=== PATIENT | female | born 1945 | race Caucasian/White ===

== ENCOUNTER 2018-08-25 20:51 | Inpatient (IN) | payer OTHER ==
[~2018-08-25] VITALS: Ht 157.5 cm; Wt 84.0 kg
[~2018-08-25 20:51] MED LIST: KEFLEX500 MG PO; LAC PO; MYL80 CH; NOR10T PO; OSCD PO
[2018-08-25 20:57] VITALS: Ht 157.5 cm; Wt 84.0 kg
[2018-08-25 22:10] LABS: CALCIUM 8.9 mg/dL (8.5-10.1); CHLORIDE SERUM 103 mmol/L (98-107); CREATININE SERUM 0.8 mg/dL (0.6-1.0); GLUCOSE SERUM 112 mg/dL (74-106); POTASSIUM SERUM 3.7 mmol/L (3.5-5.1); SODIUM SERUM 138 mmol/L (136-145)
[2018-08-25 22:13] LABS: BASOPHIL % 0.2 % (0-2); PLATELET COUNT 172 x10^3mcL (130-400); RED CELL DISTRIBUTION WIDTH 12.8 % (11.5-14.5)
[2018-08-25 22:15] LABS: ALBUMIN 3.4 g/dL (3.4-5.0); ALKALINE PHOSPHATASE 95 U/L (46-116); ALT/SGPT 15 U/L (14-59); AST/SGOT 27 U/L (15-37); BILIRUBIN TOTAL 0.99 mg/dL (0.20-1.00); LIPASE 121 IU/L (73-393)
[2018-08-25 22:33] LABS: UA SPECIFIC GRAVITY 1.015 (1.005-1.035); microscopic required? YES; urine erythrocyte 3+ (NEGATIVE)
[2018-08-25] MEDS ORDERED: AMOXICILLIN/CLA1 TA6 PO (23:11)
[2018-08-25] MEDS ORDERED: FAMOTIDINE40 MG PO (23:11)
[2018-08-25] MEDS ORDERED: BACLOFEN5 MG PO (23:13)
[2018-08-25] MEDS ORDERED: DICLOFENAC SODI75 MG PO (23:14)
[2018-08-25] MEDS ORDERED: TRAZODONE50 M1 PO (23:14)
[2018-08-26 00:43] LABS: CHOLESTEROL/HDL RATIO 3.5; MAGNESIUM 1.7 mg/dL (1.8-2.4); PHOSPHOROUS 2.8 mg/dL (2.5-4.9)
[2018-08-26 02:10] VITALS: BP 113/43
[2018-08-26 05:41] VITALS: BP 100/41
[2018-08-26 06:33] LABS: BASOPHIL % 0.1 % (0-2); PLATELET COUNT 139 x10^3mcL (130-400); RED CELL DISTRIBUTION WIDTH 12.3 % (11.5-14.5)
[2018-08-26 07:11] LABS: CALCIUM 8.2 mg/dL (8.5-10.1); CARBON DIOXIDE 23.3 mmol/L (21-32); CHLORIDE SERUM 108 mmol/L (98-107); CREATININE SERUM 0.7 mg/dL (0.6-1.0); GLUCOSE SERUM 99 mg/dL (74-106); MAGNESIUM 1.7 mg/dL (1.8-2.4); POTASSIUM SERUM 3.7 mmol/L (3.5-5.1); SODIUM SERUM 141 mmol/L (136-145)
[2018-08-26 08:50] VITALS: BP 124/44
[2018-08-26 11:56] LABS: AMPHETAMINE QUAL UR NONE DETECTED (See below)
[2018-08-26 16:45] VITALS: BP 122/48
[2018-08-26 21:03] VITALS: BP 105/66
[2018-08-27 05:54] VITALS: BP 133/54
[2018-08-27 06:28] LABS: CALCIUM 8.3 mg/dL (8.5-10.1); CARBON DIOXIDE 26.9 mmol/L (21-32); CHLORIDE SERUM 107 mmol/L (98-107); CREATININE SERUM 0.6 mg/dL (0.6-1.0); GLUCOSE SERUM 89 mg/dL (74-106); MAGNESIUM 1.9 mg/dL (1.8-2.4); PHOSPHOROUS 2.4 mg/dL (2.5-4.9); POTASSIUM SERUM 4.1 mmol/L (3.5-5.1); SODIUM SERUM 140 mmol/L (136-145)
[2018-08-27 06:42] LABS: BASOPHIL % 0.3 % (0-2); PLATELET COUNT 138 x10^3mcL (130-400); RED CELL DISTRIBUTION WIDTH 12.6 % (11.5-14.5)
[2018-08-27 09:33] VITALS: BP 135/45
[2018-08-27 18:14] VITALS: BP 145/50
[2018-08-27 21:40] VITALS: BP 135/47
[2018-08-28 05:49] VITALS: BP 138/53
[2018-08-28 06:33] LABS: BASOPHIL % 0.3 % (0-2); PLATELET COUNT 160 x10^3mcL (130-400); RED CELL DISTRIBUTION WIDTH 12.8 % (11.5-14.5)
[2018-08-28 06:47] LABS: CALCIUM 8.4 mg/dL (8.5-10.1); CARBON DIOXIDE 27.2 mmol/L (21-32); CHLORIDE SERUM 106 mmol/L (98-107); CREATININE SERUM 0.7 mg/dL (0.6-1.0); GLUCOSE SERUM 90 mg/dL (74-106); PHOSPHOROUS 2.9 mg/dL (2.5-4.9); SODIUM SERUM 141 mmol/L (136-145)
[2018-08-28 09:39] VITALS: BP 137/50
[2018-08-28] MEDS ORDERED: LEV500 PO (10:24)
[2018-08-28] MEDS ORDERED: LAC PO (10:25)
[2018-08-28] MEDS ORDERED: FLA500 PO (10:25)
[2018-08-28] MEDS ORDERED: DIFLUCAN200 MG PO (10:29)
[2018-08-28] MEDS ORDERED: PEPCID20 MG PO (10:29)
[2018-08-28 12:29] VITALS: BP 137/50
== END 2018-08-28 14:00 | disposition home or self-care (01) | DRG 391 ==
LOC: ED 20:51 → MU 23:58
PROVIDERS: Emergency Medicine; ADMIT General Practice
DX: K57.32 Diverticulitis of large intestine without perforation or abscess without bleeding (principal); N17.0 Acute kidney failure with tubular necrosis; R31.29 Other microscopic hematuria; E78.5 Hyperlipidemia, unspecified; E83.42 Hypomagnesemia; E83.39 Other disorders of phosphorus metabolism; G89.29 Other chronic pain; M54.9 Dorsalgia, unspecified; Z68.34 Body mass index [BMI] 34.0-34.9, adult
CPT/HCPCS: J1885; J1956; J2270; J2405; J3490; J7030; Q0092

== ENCOUNTER 2019-01-03 16:59 | Inpatient (IN) | payer OTHER, MEDICARE ==
[~2019-01-03] VITALS: Ht 157.5 cm; Wt 77.6 kg
[~2019-01-03 16:59] MED LIST changes: +AMOXICILLIN/CLA1 TA6 PO; +BACLOFEN5 MG PO; +DICLOFENAC SODI75 MG PO; +DIFLUCAN200 MG PO; +FAMOTIDINE40 MG PO; +FLA500 PO; +LEV500 PO; +PEPCID20 MG PO; +TRAZODONE50 M1 PO
[2019-01-03 17:14] VITALS: Ht 157.5 cm; Wt 77.6 kg
--- NOTE | 2019-01-03 19:35 | NUR ---
PT PRESENTS TO ER TODAY WITH C/O OF LLQ PAIN THAT STARTED APPROX 3 DAYS AGO. PT REPORTS THAT HER PAIN IS SHARP AND RADIATES TO HER LOWER BACK. PT RATES HER PAIN A 8/10. PT REPORTS NUASEA BUT DENIES ANY VOMITING OR DIARRHEA. PT ALSO REPORTS URINARY FREQUENCY. PT REPORT THAT SHE HAS HAD THIS PROBLEM BEFORE LAST AUGUST AND WAS DX WITH DIVERTICULITIS. PT IS A/O X4. RESP ARE EQUAL AND UNLABORED. NO ACUTE DISTRESS NOTED. SPOUSE AT BEDSIDE.
[2019-01-03 20:18] LABS: BASOPHIL % 0.2 % (0-2); PLATELET COUNT 194 x10^3mcL (130-400); RED CELL DISTRIBUTION WIDTH 12.8 % (11.5-14.5)
[2019-01-03 20:37] LABS: CALCIUM 9.3 mg/dL (8.5-10.1); CARBON DIOXIDE 26.9 mmol/L (21-32); CHLORIDE SERUM 102 mmol/L (98-107); CREATININE SERUM 0.8 mg/dL (0.6-1.0); GLUCOSE SERUM 101 mg/dL (74-106); POTASSIUM SERUM 3.5 mmol/L (3.5-5.1); SODIUM SERUM 138 mmol/L (136-145)
[2019-01-03 20:41] LABS: ALBUMIN 3.4 g/dL (3.4-5.0); ALKALINE PHOSPHATASE 118 U/L (46-116); ALT/SGPT 36 U/L (14-59); AST/SGOT 23 U/L (15-37); BILIRUBIN TOTAL 1.01 mg/dL (0.20-1.00); CHOLESTEROL 200 mg/dL (<200); LIPASE 75 IU/L (73-393); TOTAL PROTEIN, SERUM 6.8 g/dL (6.4-8.2); TRIGLYCERIDES 46 mg/dL (<150)
[2019-01-03 20:42] LABS: FREE T4 1.12 ng/dL (0.76-1.46); HDL CHOLESTEROL 66 mg/dL (40-60); T4(THYROXINE) 8.9 ug/dL (4.7-13.3)
--- NOTE | 2019-01-03 20:42 | NUR ---
PT OFF THE FLOOR FOR CT SCAN.
[2019-01-03 20:45] LABS: T3 TOTAL 0.83 ng/mL
[2019-01-03 21:55] LABS: microscopic required? YES; urine erythrocyte 3+ (NEGATIVE)
--- NOTE | 2019-01-03 22:22 | NUR ---
REPORT GIVEN LANCE MCCLURE TO ASSUME CARE OF PT.
[2019-01-03 22:54] LABS: MAGNESIUM 1.9 mg/dL (1.8-2.4); PHOSPHOROUS 3.2 mg/dL (2.5-4.9)
[2019-01-03 23:14] VITALS: BP 114/45
--- NOTE | 2019-01-03 23:23 | NUR ---
RECEIVED PT FROM ER. PT ADMIT FOR DIVERTICULITIS, PT IS A/O X4, VERBAL RESPONSIVE, ABLE TO TELL WHAT SHE NEEDS. LUNG SOUND CLEAR BILATERAL, NO COUGH, NO SOB, PT DENY ANY CHEST PAIN OR DISCOMFORT, BOWEL SOUND PRESENT ALL 4 QUADRANTS, NO DISTENTION, NO TENDER. PT C/O LEFT LOWER PAIN 3/10, DENY ANY N/V PEDAL PULSE PRESENT BOTH FEET, NON PITTING EDEMA NOTED BLE. IV AT RIGHT AC, NO LEAKING, NO INFILTRATION. ALL ADLS ASSIST, ALL NEED MET, CALL LIGHT IN REACH, WILL CONTINUE TO MONITOR.
--- NOTE | 2019-01-03 23:38 | NUR ---
IVF NS STARTED @ 100CC/HR IV ACCESS @ [facility] PATENT NON INFIL, PT DENIES PAIN AT THIS TIME AND ASKING FOR FOOD SINCE SHE DIDNT EAT SINCE THIS AFTERNOON, DENIES NAUSEA OR VOMITING, DR VIDAL MADE AWARE, STILL HAVE TO REVIEW LABS, OK'D TO GIVE SOME ICE CHIPS FOR NOW, WILL CONT TO MONITOR.
[2019-01-04 05:56] VITALS: BP 110/55
--- NOTE | 2019-01-04 06:05 | NUR ---
PT REMAINED NPO, NO C/O ABDL PAIN NO NAUSEA OR VOMITING, PT C/O HEADACHE 5/10 PER ASSESSMENT, V/S STABLE TYLENOL 650 MG PO GIVEN PER PRN ORDER FOR DIALLO, REPOSITIONED SELF TO COMFORT, IVF INFUSING WELL ORDERED, CONT TO MONITOR.
[2019-01-04 06:29] LABS: CARBON DIOXIDE 25.5 mmol/L (21-32); CHLORIDE SERUM 105 mmol/L (98-107); CREATININE SERUM 0.7 mg/dL (0.6-1.0); GLUCOSE SERUM 95 mg/dL (74-106); POTASSIUM SERUM 3.8 mmol/L (3.5-5.1); SODIUM SERUM 139 mmol/L (136-145)
[2019-01-04 06:40] LABS: BASOPHIL % 0.1 % (0-2); PLATELET COUNT 159 x10^3mcL (130-400); RED CELL DISTRIBUTION WIDTH 12.4 % (11.5-14.5)
--- NOTE | 2019-01-04 07:32 | NUR ---
AT 0710 - RECEIVED PATIENT FROM NIGHT NURSE. PATIENT RESTING WITH EYES CLOSED. RESPIRATIONS REGULAR. IV INFUSING NS AT 100ML/HR. CONTINUING TO MONITOR.
[2019-01-04 08:36] VITALS: BP 101/41
--- NOTE | 2019-01-04 09:25 | NUR ---
AT 0830 - PATIENT AWAKE, ALERT AND ORIENTED. REPORTS SLIGHT ABDOMINAL PAIN LLQ. DECLINED PAIN MEDICATION AT THIS TIME. REPORTS THAT HEADACHE SHE HAD EARLIER HAD RESOLVED. ABDOMEN SOFT WITH HYPOACTIVE BOWEL SOUNDS. PATIENT IS NPO AT THIS TIME - WILL REVIEW WITH DOCTOR. PATIENT REFUSED COLACE.
--- NOTE | 2019-01-04 10:39 | NUR ---
AT 1010 - SEEN BY DR HALL DURING MORNING ROUNDS. MEDICAL TEAM DOCTORS, YARELY SAUCEDO, AND MYSELF PRIMARY CARE NURSE ALSO PRESENT. DR HALL SPOKE WITH PATIENT ABOUT PLAN OF TREATMENT. OK FOR PATIENT TO HAVE SOFT DIET. COMMENCED ON ZOSYN. FIRST DOSE IN PROGRESS. AT 1020 - SPOKE WITH DR GONZALEZ REGARDING PATIENT'S DIET. SHE WILL PLACE AN ORDER.
--- NOTE | 2019-01-04 13:05 | NUR ---
PATIENT EATING LUNCH.
--- NOTE | 2019-01-04 13:41 | NUR ---
DR JORDAN NOTIFIED OF D-DIMER LEVEL OF 560. PATIENT FOR BLE ULTRASOUND.
--- NOTE | 2019-01-04 15:14 | NUR ---
C/O LLQ ABDOMINAL PAIN. MEDICATED WITH TYLANOL PER EMAR. PLACED CALL FOR DR FUNG - PATIENT HAS REPORTED THAT TREMADOL WORKS WELL FOR HER AND WILL CHECK WITH DR IF IT CAN BE ADDED TO PATIENT'S PROFILE.
[2019-01-04 17:42] VITALS: BP 109/49
--- NOTE | 2019-01-04 18:33 | NUR ---
VSS. AFEBRILE. IV INFUSING NS AT 100 ML/HR. PATIENT TOLERATING PO FOOD INTAKE OF REGULAR DIET. REPORTS GOOD RELIEF OF PAIN WITH TYLANOL. AMBULATES TO BATHROOM FOR TOILET NEEDS. SCDS TO BLE. WILL ENDORSE CARE TO NIGHT NURSE.
[2019-01-04 20:28] VITALS: BP 117/55
--- NOTE | 2019-01-04 21:20 | NUR ---
AAO X4 VERBAL DENIES HEADACHE OR DIZZINESS, AMBULATES TO THE THE BATHROOM, PT CLAIMED HAVING EPISODES OF HEADACHE AND BACKACHE BUT SHE AGREED TO JUST HAVE TYLENOL PRN FOR PAIN, STATED TO DISREGARD REQUEST FOR TRAMADOL IN WHICH SHE'S TAKING AT HOME FOR PAIN, IVF NS INFUSING @ 100CC/HR, IV ACCESS RAC PATENT NON INFIL, DENIES ABDL PAIN, VOIDING FREELY NO DISCOMFORTS, BM X1 JUST SMALL AMT ON LAXATIVES FOR BOWEL MANAGEMENT, SCD'S OFF PER REQUEST, BLE TRACED EDEMA ELEVATED WITH PILLOW, SHIFT ASSESSMENT DONE, PT COMFORTABLE WATCHING TV AT THIS TIME, NO CONCERNS, CONT TO MONITOR.
--- NOTE | 2019-01-05 04:30 | NUR ---
HANGED IV ATB ZOSYN ORDERED NO ADV REACTION, PT AMBULATES TO THE BATHROOM STEADY GAIT, WILL CONT TO MONITOR.
[2019-01-05 05:52] VITALS: BP 106/53
--- NOTE | 2019-01-05 06:17 | NUR ---
NO SIGNIFICANT CHANGE OF CONDITION, DENIES PAIN, SLEPT WELL NO DISTRESS CONT TO MONITOR.
[2019-01-05 07:08] LABS: BASOPHIL % 0.4 % (0-2); PLATELET COUNT 156 x10^3mcL (130-400); RED CELL DISTRIBUTION WIDTH 12.9 % (11.5-14.5)
--- NOTE | 2019-01-05 07:20 | NUR ---
RECEIVED PATIENT FROM SUPERVISOR SALVAGE NURSE. PATIENT IS AWAKE, ALERT AND ORIENTED. BLE ELEVATED ON PILLOWS. ON ROOM AIR, RESP E/U. DENIES PAIN AND DISCOMFORT. IV NOTED TO RAC, IVF INFUSING WELL ORDERED, NO S/S ERYTHEMA AT SITE. CALL LIGHT WITHIN EASY REACH. BED IN LOWEST POSITION. SIDE RAILS UP X2. WILL CONTINUE PLAN OF CARE.
[2019-01-05 07:32] LABS: CARBON DIOXIDE 25.1 mmol/L (21-32); CHLORIDE SERUM 110 mmol/L (98-107); CREATININE SERUM 0.9 mg/dL (0.6-1.0); GLUCOSE SERUM 94 mg/dL (74-106); MAGNESIUM 2.1 mg/dL (1.8-2.4); SODIUM SERUM 143 mmol/L (136-145)
[2019-01-05 08:00] VITALS: BP 125/61
--- NOTE | 2019-01-05 13:19 | NUR ---
PATIENT RESTING EASY. DENIES PAIN AND DISCOMFORT. WILL CONTINUE TO MONITOR.
--- NOTE | 2019-01-05 15:06 | NUR ---
Initial Nutrition Assessment: (256-B) RANDA SOLORZANO 73F Dx: Diverticulitis PMHx:Diverticulitis, Plantar fascitis, Carpal tunnel syndrome, OA, Cholecystitis PSHx: Hysterectomy 10yrs ago, Cholecystectomy 4yrs ago, knee meniscus repair 10yrs ago, carpal tunnel release x2 12yrs ago Labs: CL 110 H, Alk Phos 118 H, LDL 126 H, HDL 66 H Meds: Colace, Ultram, Zofran Diet: Regular PO intake since admission: 80% Ht: 62in Wt: 171# BMI: 31.3 Bed scale: 189.6# IBW: 110# %IBW: 155% UBW: 169# Age: 73 Food Allergies: NKFA Skin: Tyree: 21 Edema: trace BLE, U/S BLE done (neg for DVT) GI: Denies abd pain, BM x1 sml amount Last BM: 01/03 RD Note (01/05): Consult received for BMI 31. Visited pt and son bedside, pt states abd pain has gotten a little better since admission about 4-11/03. States has some consitpation, but otherwise tolerating current diet. Pt reports eats as much as she can but does not eat everything. Pt wanted to know more about diet for divirticulitis, provided and explained low fiber and high fiber diet to manage diverticulitis and complications. Pt reports she has lost weight since last admission back in August, but r/t diet change, cuttin gout sodas, following low fat, low sodium diet. Pt reports easts small frequent meals at home. Discussed w/ pt and son regarding snacks, would like to receive b/w meals. Discussed snack b/w meals w/ Dr Stover, confirmed. Problem with: N/V/D/C: Constipation per pt, no N/V per pt Problems with: Chewing: No Swallowing: No Current appetite: good Recent wt change: per pt, -25# since prev admission August %wt change: N/A Vitamin/Supplement use: Miralax, Probiotic (Nature's Bounty), Metamucil Special diet at home: Low fat, small freq meals Physical activity: gym 3x/wk Nutrition education given (specify specific nutrition education and handout given): NCM Low Fiber (8g) & High Fiber Nutrition Therapy handouts provided and explained. Explained to patient the role of low fiber when pt's colon experiencing problem, and high fiber for maintenence. Instructed pt to gradually increase and monitor fiber intake (~25 g/day for women), and to also drink enough fluids. Food-drug interactions? Education given? NCM Low Fiber (8g) & High Fiber Nutrition Therapy Estimated Nutritional Needs Based on current body weight (77.5 kg) Energy: 4298-2942 kcal/day (25-30kcal/kg for geriatric maintenance) Protein: 78-93 g/day (1.0-1.2g/kg) Fluid: 4962-5012 mL/day (1 mL/kcal) or per MD Nutrition Diagnosis: Altered GI function r/t acute uncomplicated diverticulitis AEB 02/03 LLQ abd pain, Hx diverticulitis. Intervention 1. Add snack in between meals, morning yogurt and afternoon pudding. Monitor/Evaluate Goal: PO intake at least 75% of estimated needs Monitor: PO intake, Labs, GI function F/U in 3-5 days as moderate risk 01/08-01/10
--- NOTE | 2019-01-05 15:06 | NUR ---
Recommendations: 1. Add snack in between meals, morning yogurt and afternoon pudding.
[2019-01-05 16:05] VITALS: BP 120/43
--- NOTE | 2019-01-05 19:16 | NUR ---
PATIENT RESTING EASY IN NO ACUTE DISTRESS. CARE ENDORSED TO [facility] SPECIALIST NURSECHAYA.
--- NOTE | 2019-01-05 20:00 | NUR ---
RECEIVED PT IN BED, RESTING QUIETLY. A/OX4. DENIES HEADACHE/DIZZINESS. RESP. EVEN AND UNLABORED. ON ROOM AIR, NO ACUTE DISTRESS NOTED. NO TELE, DENIES CP OR ANY DISCOMFORT AT THIS TIME. HL TO RAC, INTACT AND PATENT. ABD. SOFT, NON DISTENDED, BS ACTIVE, NO N/V NOTED. AMBULATORY. VOIDING FREELY. NO COMPLAINTS NOTED AT THIS TIME. CALL LIGHT WITHIN REACH. WILL CONTINUE TO MONITOR.
[2019-01-05 20:56] VITALS: BP 129/47
--- NOTE | 2019-01-06 00:47 | NUR ---
EYES CLOSED, APPEARS ASLEEP, EASILY AROUSABLE. RESP. EVEN AND UNLABORED. NO ACUTE DISTRESS NOTED. WILL CONTINUE TO MONITOR.
--- NOTE | 2019-01-06 06:19 | NUR ---
SLEPT WELL. NO SIGNIFICANT CHANGE IN PT,S CONDITION NOTED. DENIES PAIN OR ANY DISCOMFORT AT THIS TIME. AFEBRILE AND VITAL SIGNS STABLE. DUE MEDS GIVEN ORDERED, SAMIR. WELL. KEPT COMFORTABLE. WILL CONTINUE TO MONITOR.
[2019-01-06 06:48] LABS: BASOPHIL % 0.5 % (0-2); PLATELET COUNT 182 x10^3mcL (130-400); RED CELL DISTRIBUTION WIDTH 12.5 % (11.5-14.5)
--- NOTE | 2019-01-06 07:15 | NUR ---
RECEIVED PATIENT FROM MOLECULAR BIOLOGY PROFESSOR NURSE. PATIENT IS AWAKE, ALERT AND ORIENTED. BLE ELEVATED ON PILLOWS. ON ROOM AIR, RESP E/U. DENIES PAIN AND DISCOMFORT. IV NOTED TO RAC, IVF INFUSING WELL ORDERED, NO S/S ERYTHEMA AT SITE. CALL LIGHT WITHIN EASY REACH. BED IN LOWEST POSITION. SIDE RAILS UP X2. WILL CONTINUE PLAN OF CARE.
[2019-01-06 07:21] VITALS: BP 127/53
[2019-01-06 07:26] LABS: CALCIUM 8.9 mg/dL (8.5-10.1); CHLORIDE SERUM 108 mmol/L (98-107); CREATININE SERUM 0.8 mg/dL (0.6-1.0); GLUCOSE SERUM 96 mg/dL (74-106); SODIUM SERUM 143 mmol/L (136-145)
[2019-01-06 10:39] VITALS: BP 127/53
--- NOTE | 2019-01-06 11:04 | NUR ---
ALL DC INSTRUCTIONS INSTRUCTIONS GIVEN TO PATIENT. ALL QUESTIONS ANSWERED REGARDING DC. PATIENT TO GET DRESSED AND NOTIFY STAFF WHEN READY TO BE TAKEN DOWN TO LOBBY.
--- NOTE | 2019-01-06 14:41 | NUR ---
PATIENT STATES "I FEEL A YEAST INFECTION COMING ON, CAN I GET MEDICATION FOR IT BEFORE I LEAVE." GENERAL SURGERY PHYSICIAN ASSISTANT MAGGY TO BE NOTIFIED.
--- NOTE | 2019-01-06 15:52 | NUR ---
PATIENT GIVEN ALL DC INSTRUCTIONS AT THIS TIME. ALL QUESTIONS ANSWERED REGARDING DC PAPERWORK. PATIENT INSTRUCTED TO GET DRESSED AND COLLECT ALL PERSONAL BELONGINGS.
[2019-01-06] MEDS ORDERED: AUG500 PO (16:05)
--- NOTE | 2019-01-06 16:10 | NUR ---
PATIENT DC'D HOME. TAKEN DOWN TO LOBBY. ALL PERSONAL BELONGINGS TAKEN WTIH PATIENT. VS STABLE. AWAKE, ALERT AND ORIENTED AT TIME OF DC. NO C/O PAIN OR DISCOMFORT.
== END 2019-01-06 16:06 | disposition home or self-care (01) | DRG 391 ==
LOC: ED 16:59 → MU 21:48
PROVIDERS: Specialist; ADMIT Internal Medicine
DX: K57.32 Diverticulitis of large intestine without perforation or abscess without bleeding (principal); N17.0 Acute kidney failure with tubular necrosis; R60.9 Edema, unspecified; R80.9 Proteinuria, unspecified; E66.9 Obesity, unspecified; Z68.31 Body mass index [BMI] 31.0-31.9, adult
CPT/HCPCS: 83880; 84439; 85378; G0378; J1885; J1956; J2405; J2543; J3010; J3490; J7030; Q0092

== ENCOUNTER → 2019-02-12 | Outpatient (CLI) | payer OTHER, MEDICARE ==
[~2019-02-12] MED LIST changes: +AUG500 PO
== END | disposition home or self-care (01) ==
LOC: CT 08:33
PROC: BW21ZZZ Computerized Tomography (CT Scan) of Abdomen and Pelvis (ICD-10-PCS; principal; 2019-02-12)
DX: K57.32 Diverticulitis of large intestine without perforation or abscess without bleeding (principal)

== ENCOUNTER → 2019-11-06 | Outpatient (CLI) | payer OTHER, MEDICARE | END | disposition home or self-care (01) | LOC: CT 08:51 | PROC: BW28ZZZ Computerized Tomography (CT Scan) of Head (ICD-10-PCS; principal; 2019-11-06) | DX: S06.0X9A Concussion with loss of consciousness of unspecified duration, initial encounter (principal); W19.XXXA Unspecified fall, initial encounter; Y92.9 Unspecified place or not applicable ==

== ENCOUNTER 2019-12-19 07:55 | Emergency (ER) | payer OTHER, MEDICARE, SELFPAY ==
[~2019-12-19] VITALS: Ht 162.6 cm; Wt 76.2 kg
[2019-12-19 09:15] LABS: BASOPHIL % 0.1 % (0-2); PLATELET COUNT 152 x10^3mcL (130-400); RED CELL DISTRIBUTION WIDTH 12.8 % (11.5-14.5)
[2019-12-19 10:04] LABS: microscopic required? YES; urine erythrocyte 3+ (NEGATIVE)
[2019-12-19 10:07] LABS: CALCIUM 8.7 mg/dL (8.5-10.1); CHLORIDE SERUM 99 mmol/L (98-107); CREATININE SERUM 0.8 mg/dL (0.6-1.0); GLUCOSE SERUM 115 mg/dL (74-106); POTASSIUM SERUM 3.8 mmol/L (3.5-5.1); SODIUM SERUM 135 mmol/L (136-145)
[2019-12-19 10:11] LABS: ALBUMIN 3.5 g/dL (3.4-5.0); ALKALINE PHOSPHATASE 98 U/L (46-116); ALT/SGPT 41 U/L (14-59); AST/SGOT 36 U/L (15-37); BILIRUBIN TOTAL 0.9 mg/dL (0.20-1.00); C REACTIVE PROTEIN 11.8 mg/dL (<=0.9); LACTIC DEHYDROGENASE (LDH) 182 U/L (100-190); TOTAL PROTEIN, SERUM 6.9 g/dL (6.4-8.2)
[2019-12-19 12:24] VITALS: BP 115/50
== END 2019-12-19 12:24 | disposition home or self-care (01) ==
LOC: ED 07:55
PROVIDERS: Emergency Medicine
DX: R50.9 Fever, unspecified (principal); R51 Headache; M79.10 Myalgia, unspecified site; R10.9 Unspecified abdominal pain; R07.89 Other chest pain; R05 Cough; Z20.828 Contact with and (suspected) exposure to other viral communicable diseases; Z88.8 Allergy status to other drugs, medicaments and biological substances
CPT/HCPCS: 36600; 83880; 85378; 87804; J7030; Q0092; U0003-CS

== ENCOUNTER → 2020-03-07 | Outpatient (CLI) | payer OTHER, MEDICARE | END | disposition home or self-care (01) | LOC: RD 07:46 | DX: M25.522 Pain in left elbow (principal) ==